=== PATIENT | female | born 1955 | race Caucasian/White ===

== ENCOUNTER → 2020-07-14 | Day surgery (SDC) | payer OTHER | END | disposition home or self-care (01) | LOC: JMAMMO-SUR 12:21 | PROVIDERS: ATTEND Surgery | PROC: 07B53ZX Excision of Right Axillary Lymphatic, Percutaneous Approach, Diagnostic (ICD-10-PCS; principal; 2020-07-14) | DX: D36.0 Benign neoplasm of lymph nodes (principal); C50.911 Malignant neoplasm of unspecified site of right female breast | CPT/HCPCS: 19083; 76642-TC-RT; 87899; A4648 ==

== ENCOUNTER 2020-07-30 04:39 | Day surgery (SDC) | payer OTHER ==
[2020-07-29 10:10] VITALS: BMI 25.2
[2020-07-30] MEDS ORDERED: BUPIVACAINE HCL 50 ML ONE ×2 (09:12→11:30)
[2020-07-30] MEDS ORDERED: ceFAZolin SODIUM 1 GM VIAL ONE (11:24)
[2020-07-30] MEDS ORDERED: KETOROLAC TROMETHAMINE 30 MG/1 ML VIAL ONE (11:24)
[2020-07-30] MEDS ORDERED: DEXAMETHASONE SOD PHOSPHATE 4 MG/1 ML VIAL ONE (11:24)
[2020-07-30] MEDS ORDERED: LIDOCAINE HCL/PF 2% SDV 5ML VIAL ONE (11:25)
[2020-07-30] MEDS ORDERED: MIDAZOLAM HCL 2 MG/2 ML SINGLE DOSE VIAL ONE (11:25)
[2020-07-30] MEDS ORDERED: ISOSULFAN BLUE 50 MG/5 ML VIAL SQ ONE (11:30)
[2020-07-30] MEDS ORDERED: ceFAZolin SODIUM 1 GM VIAL IVPB ONE (12:28)
[2020-07-30] MEDS ORDERED: BUPIVACAINE HCL 0.5% 250 MG/50 ML VIAL IJ ONE (12:43)
[2020-07-30] MEDS ORDERED: PROPOFOL 20 ML ONE (13:01)
[2020-07-30] MEDS ORDERED: oxyCODONE HCL 5 MG TABLET PO PRN (15:27)
[2020-07-30] MEDS ORDERED: ONDANSETRON 4 MG/2 ML VIAL IVPUSH PRN (15:27)
[2020-07-30] MEDS ORDERED: LACTATED RINGERS SOLUTION 1,000 ML IV SCH (15:30)
[2020-07-30 17:29] VITALS: BP 150/80; PULSE 100; TEMP 97.8
== END 2020-07-30 17:49 | disposition home or self-care (01) ==
LOC: JASU-SURG 04:39
PROVIDERS: ATTEND Surgery
PROC: 07B50ZX Excision of Right Axillary Lymphatic, Open Approach, Diagnostic (ICD-10-PCS; 2020-07-30)
PROC: C71L1ZZ Planar Nuclear Medicine Imaging of Upper Chest Lymphatics using Technetium 99m (Tc-99m) (ICD-10-PCS; 2020-07-30)
PROC: 0HBT0ZZ Excision of Right Breast, Open Approach (ICD-10-PCS; principal; 2020-07-30 12:00)
DX: C50.911 Malignant neoplasm of unspecified site of right female breast (principal); E11.9 Type 2 diabetes mellitus without complications; I10 Essential (primary) hypertension; Z79.4 Long term (current) use of insulin
CPT/HCPCS: 19281; 76098-TC-FY; 78195-TC; 82962; 88307-TC; 88341-TC; 88342-TC; 94760; A9541